=== PATIENT | female | born 1945 | race Caucasian/White ===

== ENCOUNTER 2019-03-14 09:17 | Observation (INO) | payer MEDICARE, MEDICAID ==
[~2019-03-14] VITALS: Ht 162.6 cm; Wt 68.2 kg
[2019-03-14] MEDS ORDERED: BAYER CHEWABLE81 MG PO (09:24)
--- NOTE | 2019-03-14 10:30 | NUR ---
MITZI, JULIANNE, AT BEDSIDE SPLINTING PT'S RIGHT ANKLE.
[2019-03-14 10:53] LABS: BASOPHILS 0.2 % (0-2); EOSINOPHILS 0.5 % (0-7); HEMATOCRIT 45.3 % (36.0-48.0); HEMOGLOBIN 14.9 g/dL (12-16); IMMATURE GRANULOCYTES 0.6 % (0-5); LYMPHOCYTES 20.8 % (15-50); MCHC 32.9 g/dL (31.0-37.0); MCV 91.1 fL (80.0-100.0); MEAN PLATELET VOLUME 9.9 fL (7.4-10.4); MONOCYTES 6.6 % (2-11); NEUTROPHILS 71.3 % (40-80); PLATELET COUNT 249 10x3/uL (130-400); RBC 4.97 10x6/uL (4.00-5.40); RDW 13.7 % (11.5-14.5); WBC 15.5 10x3/uL (4.8-10.8)
[2019-03-14 11:09] LABS: ALBUMIN 3.7 g/dL (3.4-5.0); ANION GAP 15.4 mmol/L (8-16); BILIRUBIN - TOTAL 0.23 mg/dL (0.2-1.3); CALCIUM 8.8 mg/dL (8.5-10.1); CARBON DIOXIDE 22.4 mmol/L (21.0-32.0); CREATININE - SERUM 0.9 mg/dL (0.6-1.3); POTASSIUM - SERUM 4.8 mmol/L (3.5-5.1); PROTEIN - SERUM 6.9 g/dL (6.4-8.2)
[2019-03-14 11:38] VITALS: BP 107/74; Ht 162.6 cm; Wt 68.2 kg
--- NOTE | 2019-03-14 11:48 | NUR ---
ALERT AND ORIENTED X 3. LUNGS CLEAR BILATERALLY IN ALL VAZQUEZ. HEART SOUNDS S1 AND S2 HEARD IN ALL VAZQUEZ. BOWEL SOUNDS ACTIVE X 4. SKIN INTACT WITHOUT REDNESS. DANIKA WRAP AND IMMOBILIZER IN PLACE TO RIGHT ANKLE. GIVEN PAIN MEDICATION IN ER BUT STATES STILL IN PAIN. MONOTYPE OPERATOR NOTIFIED. IV TO LFA PATENT WITHOUT REDNESS. FALL PRECAUTIONS IN PLACE. BED LOW. DENIES FURTHER NEEDS. WILL CONTINUE TO MONITOR.
[2019-03-14 12:07] VITALS: BP 107/76
--- NOTE | 2019-03-14 12:24 | NUR ---
SPOKE WITH DR GIRON ABOUT PATIENT PROCEDURE. STATED PROCEDURE IS TOMORROW MORNING AND PATIENT CAN EAT TODAY. STATED ORDERS WERE SUPPOSED TO BE PUT IN FOR THAT. STATES IS COMING BACK TO PUT IN ORDERS. PATIENT NOTIFIED OF PROCEDURE TOMORROW
[2019-03-14 14:16] LABS: APPEARANCE HAZY (CLEAR); BILIRUBIN NEGATIVE (NEGATIVE); COLOR YELLOW (YELLOW); GLUCOSE NEGATIVE (NEGATIVE); KETONE NEGATIVE (NEGATIVE); NITRITE NEGATIVE (NEGATIVE); PROTEIN NEGATIVE (NEGATIVE); UROBILINOGEN NORMAL (NORMAL)
--- NOTE | 2019-03-14 14:52 | NUR ---
CONSENTS SIGNED FOR PROCEDURE.
--- NOTE | 2019-03-14 16:44 | NUR ---
REPORT GIVEN TO DIOGO CONN. PATIENT HANDED OFF.
[2019-03-14 17:06] VITALS: BP 98/63
--- NOTE | 2019-03-14 19:00 | NUR ---
REPORT RECEIVED AND CARE OF PT ASSUMED. RIGHT LOWER LEG IN IMMOBILIZER AND ELEVATED ON A PILLOW. ASSISTED PT UP TO USE BSC WITHOUT ANY WEIGHT BEARING ON RLE. IV IN LEFT FA SALINE LOCKED. WILL MONITOR FOR NEEDS.
[2019-03-14 20:00] VITALS: BP 94/53
--- NOTE | 2019-03-14 20:31 | NUR ---
HS MEDICATIONS GIVEN. STARTED MAINTENANCE IV FLUIDS PER PROTOCOL...1/2 NS @ 50 ML/HR.
--- NOTE | 2019-03-14 23:24 | NUR ---
GAVE MORPHINE 2 MG IVP PER REQUEST FOR PAIN. WILL MONITOR FOR EFFECTIVENESS. SIDE RAILS UP X2 FOR SAFETY.
[2019-03-15] VITALS: BP 106/58
--- NOTE | 2019-03-15 03:45 | NUR ---
GAVE MORPHINE 2 MG IVP PER REQUEST FOR PAIN. WILL MONITOR FOR EFFECTIVENESS.
[2019-03-15 04:00] VITALS: BP 103/57
[2019-03-15 04:03] LABS: BASOPHILS 0.1 % (0-2); HEMATOCRIT 40.3 % (36.0-48.0); IMMATURE GRANULOCYTES 0.4 % (0-5); LYMPHOCYTES 23.3 % (15-50); MCH 29.5 pg (26.0-34.0); MCHC 32.3 g/dL (31.0-37.0); MCV 91.6 fL (80.0-100.0); MEAN PLATELET VOLUME 9.6 fL (7.4-10.4); MONOCYTES 8.1 % (2-11); NEUTROPHILS 67.1 % (40-80); PLATELET COUNT 226 10x3/uL (130-400); RDW 13.7 % (11.5-14.5); WBC 13.8 10x3/uL (4.8-10.8)
[2019-03-15 04:14] LABS: ALBUMIN 3.1 g/dL (3.4-5.0); ANION GAP 11.1 mmol/L (8-16); BILIRUBIN - TOTAL 0.26 mg/dL (0.2-1.3); CALCIUM 8.6 mg/dL (8.5-10.1); CARBON DIOXIDE 26.4 mmol/L (21.0-32.0); POTASSIUM - SERUM 4.5 mmol/L (3.5-5.1)
--- NOTE | 2019-03-15 05:15 | NUR ---
HIBACLENS BATH PERFORMED. POSITIONED FOR COMFORT.
--- NOTE | 2019-03-15 07:15 | NUR ---
PT SITTING UP ON BEDSIDE COMMODE. C/O PAIN TO RIGHT LEG/HIP. NO S/S OF ACUTE DISTRESS NOTED. NONWEIGHT BEARING ON RIGHT SIDE. RIGHT ANKLE FX WITH IMMOBILIZER AND DANIKA BANDAGE. PT NPO SINCE MIDNIGHT. IV TO LEFT WRIST, 1/2 NS INFUSING @ 50ML/HR. SITE PATENT WITHOUT REDNESS OR SWELLING. PT DENIES ANYTHING FURTHER AT THIS TIME. BED ALARM ON, FALL PRECAUTIONS IN PLACE. CALL LIGHT IN REACH. WILL CONTINUE TO MONITOR.
--- NOTE | 2019-03-15 07:53 | NUR ---
PT C/O PAIN TO RIGHT LEG/HIP. GAVE MORPHINE FOR PAIN RATED 8/10.
--- NOTE | 2019-03-15 08:20 | NUR ---
PT TAKEN TO SURGERY THIS AM VIA BED, ACCOMPANIED BY SURGICAL STAFF.
[2019-03-15 09:01] VITALS: BP 109/55
[2019-03-15 12:38] VITALS: BP 123/66
--- NOTE | 2019-03-15 12:49 | NUR ---
RECEIVED PT FROM OR VIA BED ACCOMPANIED BY RECOVERY STAFF. VITALS STABLE, PT ON 2L O2, NC. PT C/O NAUSEA, GIVEN ZOFRAN IN RECOVERY. PT DENIES ANYTHING FURTHER AT THIS TIME. CALL LIGHT IN REACH. WILL CONTINUE TO MONITOR.
--- NOTE | 2019-03-15 14:23 | MORECARE ---
CASE MANAGEMENT DISCHARGE SUMMARY PATIENT: DEXTER JOHNS UNIT: [id number] ADM DATE: 03/14/19 AGE: 74 : 44 SEX: F ROOM/BED: D.2224 AUTHOR: TERENCE THOMAS PHYSICIAN: REFERRING PHYSICIAN: SALLY RAMOS MD DATE OF SERVICE: 03/15/19 Discharge Plan Patient Name: DEXTER JOHNS Facility: [facility]:[place] : 1945 Planned Disposition: Home Anticipated Discharge Date: Discharge Date: Expected LOS: Initial Reviewer: [email or web address] Initial Review Date: 03/14/2019 Generated: 03/15/19 3:23 pm DCPIA - Discharge Planning Initial Assessment Updated by [email or web address]: Alysha Nunn on 03/15/19 2:19 pm * Is the patient Alert and Oriented? Yes * How many steps to enter\exit or inside your home? 0/0 * PCP Dr. Brewer * Pharmacy [facility] * Preadmission Environment Independent [facility] * Facility Name [facility] * ADLs Independent * Equipment None * Community resources currently utilized None * Additional services required to return to the preadmission environment? Yes * Can the patient safely return to the preadmission environment? Yes * Has this patient been hospitalized within the prior 30 days at any hospital? No Coverage Notice Reviewer: [id number] Emilio Hdez Notice Issued Date-Time: 03/14/2019 11:10 Notice Type: Medicare Outpatient Observation Notice Notice Delivered To: Patient Relationship to Patient: Philosophy And Religion Instructor Name: Delivery Method: - Gabby Days: Prior Verbal Notification: Recipient Understood Notice: Recipient Signature: Med Rec Note Co-signed by Attending: Coverage Notice Comment: Patient Name: DEXTER JOHNS Page [id number] at 1423 All edits/amendments must be made on the electronic document DICTATION DATE: 03/15/191422 STRICKLER ATTENDANT: MICHAEL 03/15/191422 RPT#: [id number] DC DATE: STATUS: [place] [address] END OF REPORT
--- NOTE | 2019-03-15 14:35 | MORECARE ---
CASE MANAGEMENT DISCHARGE SUMMARY PATIENT: DEXTER JOHNS UNIT: [id number] ADM DATE: 03/14/19 AGE: 74 : 44 SEX: F ROOM/BED: D.2224 AUTHOR: TERENCE THOMAS PHYSICIAN: REFERRING PHYSICIAN: SALLY RAMOS MD DATE OF SERVICE: 03/15/19 Discharge Plan Patient Name: DEXTER JOHNS Facility: [facility]:[place] : 1945 Planned Disposition: Home Anticipated Discharge Date: Discharge Date: Expected LOS: Initial Reviewer: [id number] Initial Review Date: 03/14/2019 Generated: 03/15/19 3:35 pm Comments DCP- Discharge Planning Updated by [id number]: Alysha Nunn on 03/15/19 1:[address] Patient Name: DEXTER JOHNS Admission Status: ER Accout number: [id number] Admission Date: 03-14-2019 : 1945 Admission Diagnosis: Attending: SALLY RAMOS Current LOS: 1 Anticipated DC Date: Planned Disposition: Home Primary Insurance: [facility] MEDICARE SOLUTIONS Discharge Planning Comments: CM met with patient to discuss discharge planning/needs, she is alone in the room. She states she lives at the [facility]. States she is completely independent with all her care. States she does not have any DME. I informed her that she would need a walker to walk with since she can not bear weight on her right ankle. She states she would like crutches instead of a walker. I spoke with Yazan with PT and he states Thong will see her and inform of recommendation. She states that she will need transportation home. She does have Medicaid and may be able to take the [employer] bus if available. CM will await recommendation by PT before ordering crutches or walker for home use. I discussed availability of home health, rehab, or any other DME and she declines need. CM will continue to follow and assist with discharge planning/needs. Construction Millwright: Alysha Nunn DCPIA - Discharge Planning Initial Assessment Updated by [email or web address]: Alysha Nunn on 03/15/19 2:19 pm * Is the patient Alert and Oriented? Yes * How many steps to enter\exit or inside your home? 0/0 * PCP Dr. Brewer * Pharmacy [facility] * Preadmission Environment Independent [facility] * Facility Name [facility] * ADLs Independent * Equipment None * Community resources currently utilized None * Additional services required to return to the preadmission environment? Yes * Can the patient safely return to the preadmission environment? Yes * Has this patient been hospitalized within the prior 30 days at any hospital? No Coverage Notice Reviewer: [id number] Emilio Hdez Notice Issued Date-Time: 03/14/2019 11:10 Notice Type: Medicare Outpatient Observation Notice Notice Delivered To: Patient Relationship to Patient: Director Of Philanthropy Name: Delivery Method: - Gabby Days: Prior Verbal Notification: Recipient Understood Notice: Recipient Signature: Med Rec Note Co-signed by Attending: Coverage Notice Comment: Last DP export: 03/15/19 1:23 p Patient Name: DEXTER JOHNS Page [id number] at 1435 All edits/amendments must be made on the electronic document DICTATION DATE: 03/15/191433 HOSPITAL WELLNESS COORDINATOR: MICHAEL 03/15/19 143 RPT#: [id number] DC DATE: STATUS: ADM IN [facility] [address] [place] [address] END OF REPORT
--- NOTE | 2019-03-15 15:39 | NUR ---
PLEXI PULSE AND LUO HOSE TO LEFT LEG,
--- NOTE | 2019-03-15 15:43 | MORECARE ---
CASE MANAGEMENT DISCHARGE SUMMARY PATIENT: DEXTER JOHNS UNIT: [id number] ADM DATE: 03/14/19 AGE: 74 : 44 SEX: F ROOM/BED: D.2224 AUTHOR: TERENCE THOMAS PHYSICIAN: REFERRING PHYSICIAN: SALLY RAMOS MD DATE OF SERVICE: 03/15/19 Discharge Plan Patient Name: DEXTER JOHNS Facility: [facility]:[place] : 1945 Planned Disposition: Home Anticipated Discharge Date: Discharge Date: Expected LOS: Initial Reviewer: [id number] Initial Review Date: 03/14/2019 Generated: 03/15/19 4:43 pm Comments DCP- Discharge Planning Updated by [id number]: Alysha Nunn on 03/15/19 1:[address] Patient Name: DEXTER JOHNS Admission Status: ER Accout number: [id number] Admission Date: 03-14-2019 : 1945 Admission Diagnosis: Attending: SALLY RAMOS Current LOS: 1 Anticipated DC Date: Planned Disposition: Home Primary Insurance: [facility] MEDICARE SOLUTIONS Discharge Planning Comments: CM met with patient to discuss discharge planning/needs, she is alone in the room. She states she lives at the [facility]. States she is completely independent with all her care. States she does not have any DME. I informed her that she would need a walker to walk with since she can not bear weight on her right ankle. She states she would like crutches instead of a walker. I spoke with Yazan with PT and he states Thong will see her and inform of recommendation. She states that she will need transportation home. She does have Medicaid and may be able to take the [email or web address] bus if available. CM will await recommendation by PT before ordering crutches or walker for home use. I discussed availability of home health, rehab, or any other DME and she declines need. CM will continue to follow and assist with discharge planning/needs. Dry Charge Process Attendant: Alysha Nunn DCPIA - Discharge Planning Initial Assessment Updated by [id number]: Alysha Nunn on 03/15/19 2:19 pm * Is the patient Alert and Oriented? Yes * How many steps to enter\exit or inside your home? 0/0 * PCP Dr. Brewer * Pharmacy [facility] * Preadmission Environment Independent [facility] * Facility Name [facility] * ADLs Independent * Equipment None * Community resources currently utilized None * Additional services required to return to the preadmission environment? Yes * Can the patient safely return to the preadmission environment? Yes * Has this patient been hospitalized within the prior 30 days at any hospital? No External Providers External Provider: Ramírez [facility] Next Contact Date: Service Request Date: Service Type: Resolution: Reviewer: Comments: Coverage Notice Reviewer: [id number] Emilio Hdze Notice Issued Date-Time: 03/14/2019 11:10 Notice Type: Medicare Outpatient Observation Notice Notice Delivered To: Patient Relationship to Patient: Cutter Hot Knife Name: Delivery Method: - Gabby Days: Prior Verbal Notification: Recipient Understood Notice: Recipient Signature: Med Rec Note Co-signed by Attending: Coverage Notice Comment: Last DP export: 03/15/19 1:35 p Patient Name: DEXTER JOHNS Page 24834 at 1543 All edits/amendments must be made on the electronic document DICTATION DATE: 03/15/19 154 FULLERETTE: MICHAEL 03/15/19 154 RPT#: [id number] DC DATE: STATUS: ADM IN [facility] [address] [place] [address] END OF REPORT
--- NOTE | 2019-03-15 15:52 | MORECARE ---
CASE MANAGEMENT DISCHARGE SUMMARY PATIENT: DEXTER JOHNS UNIT: [id number] ADM DATE: 03/14/19 AGE: 74 : 44 SEX: F ROOM/BED: D.2224 AUTHOR: TERENCE THOMAS PHYSICIAN: REFERRING PHYSICIAN: SALLY RAMOS MD DATE OF SERVICE: 03/15/19 Discharge Plan Patient Name: DEXTER JOHNS Facility: [facility]:[place] : 1945 Planned Disposition: Home Anticipated Discharge Date: Discharge Date: Expected LOS: Initial Reviewer: [id number] Initial Review Date: 03/14/2019 Generated: 03/15/19 4:51 pm Comments DCP- Discharge Planning Updated by [id number]: Alysha Tomlinsonmarkos on 03/15/19 2:[address] Jl states physical therapist has left for the day and will see patient in am. I called [facility] and spoke to Naheed. Naheed states to order both crutches and walker to be delivered today. The patient will take home whatever DME works best for her and sign that ticket and the other item will be picked up by [facility]ri[facility] on Monday. Patient still states she would rather the crutches than a walker. I called [employer] per patient request and left a message with Nena. I also provided the patient with the number for meals on wheels and the number for the [employer] bus per her request. CM will continue to follow and assist with discharge planning/needs. DCP- Discharge Planning Updated by [id number]: Alysha Nunn on 03/15/19 1:[address] Patient Name: DEXTER JOHNS Admission Status: ER Accout number: [id number] Admission Date: 03-14-2019 : 1945 Admission Diagnosis: Attending: SALLY RAMOS Current LOS: 1 Anticipated DC Date: Planned Disposition: Home Primary Insurance: [facility] MEDICARE SOLUTIONS Discharge Planning Comments: CM met with patient to discuss discharge planning/needs, she is alone in the room. She states she lives at the [facility]. States she is completely independent with all her care. States she does not have any DME. I informed her that she would need a walker to walk with since she can not bear weight on her right ankle. She states she would like crutches instead of a walker. I spoke with Yazan with PT and he states Thong will see her and inform of recommendation. She states that she will need transportation home. She does have Medicaid and may be able to take the [employer] bus if available. CM will await recommendation by PT before ordering crutches or walker for home use. I discussed availability of home health, rehab, or any other DME and she declines need. CM will continue to follow and assist with discharge planning/needs. Authors Motivational: Alysha Nunn DCPIA - Discharge Planning Initial Assessment Updated by [id number]: Alysha Nunn on 03/15/19 2:19 pm * Is the patient Alert and Oriented? Yes * How many steps to enter\exit or inside your home? 0/0 * PCP Dr. Brewer * Pharmacy [facility] [address] * Preadmission Environment Independent [facility] * Facility Name [facility] * ADLs Independent * Equipment None * Community resources currently utilized None * Additional services required to return to the preadmission environment? Yes * Can the patient safely return to the preadmission environment? Yes * Has this patient been hospitalized within the prior 30 days at any hospital? No Coverage Notice Reviewer: [id number] Emilio Hdez Notice Issued Date-Time: 03/14/2019 11:10 Notice Type: Medicare Outpatient Observation Notice Notice Delivered To: Patient Relationship to Patient: Director Vaccine Name: Delivery Method: - Gabby Days: Prior Verbal Notification: Recipient Understood Notice: Recipient Signature: Med Rec Note Co-signed by Attending: Coverage Notice Comment: Reviewer: [id number] - Alysha Nunn Notice Issued Date-Time: 03/15/2019 15:44 Notice Type: Patient Choice Letter Notice Delivered To: Patient Relationship to Patient: Self Director Vaccine Name: Delivery Method: HAND - Hand Delivered Gabby Days: Prior Verbal Notification: Recipient Understood Notice: Yes Recipient Signature: Yes Med Rec Note Co-signed by Attending: Coverage Notice Comment: DANIEL SCHULTZ export: 03/15/19 2:43 p Patient Name: DEXTER JOHNS Page [id number] at 1552 All edits/amendments must be made on the electronic document DICTATION DATE: 03/15/19 1551 RECORDS MANAGEMENT CLERK: DM 03/15/191550 RPT#: [id number] DC DATE: STATUS: ADM IN [facility] [address] [place] [address] END OF REPORT
--- NOTE | 2019-03-15 16:15 | MORECARE ---
CASE MANAGEMENT DISCHARGE SUMMARY PATIENT: DEXTER JOHNS UNIT: [id number] ADM DATE: 03/14/19 AGE: 74 : 44 SEX: F ROOM/BED: D.2224 AUTHOR: TERENCE THOMAS PHYSICIAN: REFERRING PHYSICIAN: SALLY RAMOS MD DATE OF SERVICE: 03/15/19 Discharge Plan Patient Name: DEXTER JOHNS Facility: [facility]:[place] : 1945 Planned Disposition: Home Anticipated Discharge Date: Discharge Date: Expected LOS: Initial Reviewer: [email or web address] Initial Review Date: 03/14/2019 Generated: 03/15/19 5:15 pm Comments DCP- Discharge Planning Updated by [id number]: Alysha Edouard on 03/15/19 3:[address] Received a call back from Nena with [employer]. She has taken the patient's information and will have a case preparer and liner call her. Patient is asleep, so I left a message at her bedside table. CM will continue to follow and assist with discharge planning/needs. DCP- Discharge Planning Updated by [email or web address]: Alysha Nunn on 03/15/19 2:[address] Jl states physical therapist has left for the day and will see patient in am. I called [facility] and spoke to Naheed. Naheed states to order both crutches and walker to be delivered today. The patient will take home whatever DME works best for her and sign that ticket and the other item will be picked up by Jocelyne on Monday. Patient still states she would rather the crutches than a walker. I called [employer] per patient request and left a message with Nena. I also provided the patient with the number for meals on wheels and the number for the [employer] bus per her request. CM will continue to follow and assist with discharge planning/needs. DCP- Discharge Planning Updated by [id number]: Alysha Edouard on 03/15/19 1:[address] Patient Name: DEXTER JOHNS Admission Status: ER Accout number: [id number] Admission Date: 03-14-2019 : 1945 Admission Diagnosis: Attending: SALLY RAMOS Current LOS: 1 Anticipated DC Date: Planned Disposition: Home Primary Insurance: [facility] MEDICARE SOLUTIONS Discharge Planning Comments: CM met with patient to discuss discharge planning/needs, she is alone in the room. She states she lives at the [facility]. States she is completely independent with all her care. States she does not have any DME. I informed her that she would need a walker to walk with since she can not bear weight on her right ankle. She states she would like crutches instead of a walker. I spoke with Yazan with PT and he states Thong will see her and inform of recommendation. She states that she will need transportation home. She does have Medicaid and may be able to take the [employer] bus if available. CM will await recommendation by PT before ordering crutches or walker for home use. I discussed availability of home health, rehab, or any other DME and she declines need. CM will continue to follow and assist with discharge planning/needs. Inspector Tubes: Alysha Nunn DCPIA - Discharge Planning Initial Assessment Updated by [email or web address]: Alysha Nunn on 03/15/19 2:19 pm * Is the patient Alert and Oriented? Yes * How many steps to enter\exit or inside your home? 0/0 * PCP Dr. Brewer * Pharmacy [facility] * [facility]readmission Environment [facility] * Facility Name [facility] * ADLs Independent * Equipment None * Community resources currently utilized None * Additional services required to return to the preadmission environment? Yes * Can the patient safely return to the preadmission environment? Yes * Has this patient been hospitalized within the prior 30 days at any hospital? No Coverage Notice Reviewer: [id number] - Louise Hdez Notice Issued Date-Time: 03/14/2019 11:10 Notice Type: Medicare Outpatient Observation Notice Notice Delivered To: Patient Relationship to Patient: Field Clinical Engineer Name: Delivery Method: - Gabby Days: Prior Verbal Notification: Recipient Understood Notice: Recipient Signature: Med Rec Note Co-signed by Attending: Coverage Notice Comment: Reviewer: [id number] - Alysha Nunn Notice Issued Date-Time: 03/15/2019 15:44 Notice Type: Patient Choice Letter Notice Delivered To: Patient Relationship to Patient: Self Field Clinical Engineer Name: Delivery Method: HAND - Hand Delivered Gabby Days: Prior Verbal Notification: Recipient Understood Notice: Yes Recipient Signature: Yes Med Rec Note Co-signed by Attending: Coverage Notice Comment: DANIEL for Jocelyne Barak DP export: 03/15/19 2:51 p Patient Name: DEXTER JOHNS Page 23502 at 1615 All edits/amendments must be made on the electronic document DICTATION DATE: 03/15/191613 WIRE TESTER: MICHAEL 03/15/191613 RPT#: [id number] DC DATE: STATUS: ADM IN [facility] [address] [place] [address] END OF REPORT
[2019-03-15 17:23] VITALS: BP 104/67
--- NOTE | 2019-03-15 18:04 | NUR ---
I have reviewed this patient and I concur with the Shift Assessment completed by the Licensed Practical Nurse today this shift.
--- NOTE | 2019-03-15 18:27 | NUR ---
PT RESTING IN BED, EYES OPEN. NO C/O PAIN. NO S/S OF ACUTE DISTRESS NOTED. PT DENIES ANYTHING FURTHER. WILL CONTINUE TO MONTIOR.
--- NOTE | 2019-03-15 19:00 | NUR ---
REPORT RECEIVED AND CARE OF PT ASSUMED. PT LYING IN SUPINE POSITION WITH EYES CLOSED. IV IN LEFT WRIST PATENT WITH 1/2 NS INFUSING AT 50 ML / HR. DRESSING ON RIGHT LOWER LEG INTACT.
--- NOTE | 2019-03-15 19:48 | NUR ---
HS MEDICATIONS GIVEN TO INCLUDE MORPHINE FOR PAIN. GAVE PROTONIX THAT WAS HELD EARLIER TODAY FOR C/O HEARTBURN.
[2019-03-15 20:00] VITALS: BP 98/55
--- NOTE | 2019-03-15 21:15 | NUR ---
PT VOMITED 150 ML OF CLEAR LIQUID AND UNDIGESTED FOOD. STATES HE STOMACH FEELING MUCH BETTER. RESTING ON RIGHT SIDE AT THIS TIME.
--- NOTE | 2019-03-16 00:30 | NUR ---
TURNED OFF MAINTENANCE FLUIDS PT UPSET ABOUT PUMP ALARMING AND SHE CANNOT SLEEP.
[2019-03-16 04:00] VITALS: BP 107/50
[2019-03-16 07:07] LABS: BASOPHILS 0.1 % (0-2); EOSINOPHILS 0.3 % (0-7); HEMATOCRIT 39.5 % (36.0-48.0); HEMOGLOBIN 12.9 g/dL (12-16); IMMATURE GRANULOCYTES 0.4 % (0-5); LYMPHOCYTES 18.4 % (15-50); MCH 29.4 pg (26.0-34.0); MCHC 32.7 g/dL (31.0-37.0); MEAN PLATELET VOLUME 9.7 fL (7.4-10.4); MONOCYTES 8.6 % (2-11); NEUTROPHILS 72.2 % (40-80); PLATELET COUNT 227 10x3/uL (130-400); RBC 4.39 10x6/uL (4.00-5.40); RDW 13.4 % (11.5-14.5)
--- NOTE | 2019-03-16 07:15 | NUR ---
PT SITTING UP IN BED EYES OPEN. UPSET ABOUT NOT BEING ABLE TO SLEEP WELL LAST NIGHT D/T IV MACHINE GOING OFF ALL NIGHT AND STAFF HAVING TO COME IN AND OUT OF HER ROOM. NO C/O PAIN. NO S/S OF ACUTE DISTRESS NOTED. POD #1 ORIF RIGHT ANKLE. DRESSING C/D/I. IV TO LEFT WRIST, SL. PATIENT WANTED IV MACHINE OFF. PT DENIES ANYTHING FURTHER AT THIS TIME. CALL LIGHT IN REACH. WILL CONTINUE TO MONITOR.
[2019-03-16 07:22] LABS: WBC 18.1 10x3/uL (4.8-10.8)
[2019-03-16 07:39] LABS: ALBUMIN 3.1 g/dL (3.4-5.0); ANION GAP 12.2 mmol/L (8-16); BILIRUBIN - TOTAL 0.52 mg/dL (0.2-1.3); CALCIUM 8.6 mg/dL (8.5-10.1); CREATININE - SERUM 0.8 mg/dL (0.6-1.3); POTASSIUM - SERUM 4.2 mmol/L (3.5-5.1); PROTEIN - SERUM 6.2 g/dL (6.4-8.2)
[2019-03-16 08:42] VITALS: BP 107/61
--- NOTE | 2019-03-16 11:01 | NUR ---
I have reviewed this patient and I concur with the Shift Assessment completed by the Licensed Practical Nurse today this shift.
--- NOTE | 2019-03-16 13:11 | MORECARE ---
CASE MANAGEMENT DISCHARGE SUMMARY PATIENT: DEXTER JOHNS UNIT: [id number] ADM DATE: 03/14/19 AGE: 74 : 44 SEX: F ROOM/BED: D.2224 AUTHOR: TERENCE THOMAS PHYSICIAN: REFERRING PHYSICIAN: SALLY RAMOS MD DATE OF SERVICE: 03/16/19 Discharge Plan Patient Name: DEXTER JOHNS Facility: [facility]:[place] : 1945 Planned Disposition: Home Anticipated Discharge Date: 03/16/19 Discharge Date: Expected LOS: 2 Initial Reviewer: [id number] Initial Review Date: 03/14/2019 Generated: 03/16/19 2:10 pm Comments DCP- Discharge Planning Updated by [id number]: Alysha Nunn on 03/15/19 3:[address] Received a call back from Nena with [employer]. She has taken the patient's information and will have a case filler call her. Patient is asleep, so I left a message at her bedside table. CM will continue to follow and assist with discharge planning/needs. DCP- Discharge Planning Updated by [email or web address]: Alysha Nunn on 03/15/19 2:[address] Jl states physical therapist has left for the day and will see patient in am. I called [facility]oc[facility] and spoke to Naheed. Naheed states to order both crutches and walker to be delivered today. The patient will take home whatever DME works best for her and sign that ticket and the other item will be picked up by Jocelyne on Monday. Patient still states she would rather the crutches than a walker. I called [facility] per patient request and left a message with Nena. I also provided the patient with the number for meals on wheels and the number for the [facility] bus per her request. CM will continue to follow and assist with discharge planning/needs. DCP- Discharge Planning Updated by [email or web address]: Alysha Nunn on 03/15/19 1:[address] Patient Name: DEXTER JOHNS Admission Status: ER Accout number: [id number] Admission Date: 03-14-2019 : 1945 Admission Diagnosis: Attending: SALLY RAMOS Current LOS: 1 Anticipated DC Date: Planned Disposition: Home Primary Insurance: [facility] MEDICARE SOLUTIONS Discharge Planning Comments: CM met with patient to discuss discharge planning/needs, she is alone in the room. She states she lives at the [facility]. States she is completely independent with all her care. States she does not have any DME. I informed her that she would need a walker to walk with since she can not bear weight on her right ankle. She states she would like crutches instead of a walker. I spoke with Yazan with PT and he states Thong will see her and inform of recommendation. She states that she will need transportation home. She does have Medicaid and may be able to take the [employer] bus if available. CM will await recommendation by PT before ordering crutches or walker for home use. I discussed availability of home health, rehab, or any other DME and she declines need. CM will continue to follow and assist with discharge planning/needs. Electric Golf Cart Repairer: Alysha Nunn DCPIA - Discharge Planning Initial Assessment Updated by [email or web address]: Alysha Nunn on 03/15/19 2:19 pm * Is the patient Alert and Oriented? Yes * How many steps to enter\exit or inside your home? 0/0 * PCP Dr. Brewer * Pharmacy [facility] on [address] * Preadmission Environment [facility] * Facility Name [facility] * ADLs Independent * Equipment None * Community resources currently utilized None * Additional services required to return to the preadmission environment? Yes * Can the patient safely return to the preadmission environment? Yes * Has this patient been hospitalized within the prior 30 days at any hospital? No Coverage Notice Reviewer: [id number] - Louise Hdez Notice Issued Date-Time: 03/14/2019 11:10 Notice Type: Medicare Outpatient Observation Notice Notice Delivered To: Patient Relationship to Patient: Pulmonary Physician Name: Delivery Method: - Gabby Days: Prior Verbal Notification: Recipient Understood Notice: Recipient Signature: Med Rec Note Co-signed by Attending: Coverage Notice Comment: Reviewer: [id number] - Alysha Nunn Notice Issued Date-Time: 03/15/2019 15:44 Notice Type: Patient Choice Letter Notice Delivered To: Patient Relationship to Patient: Self Pulmonary Physician Name: Delivery Method: HAND - Hand Delivered Gabby Days: Prior Verbal Notification: Recipient Understood Notice: Yes Recipient Signature: Yes Med Rec Note Co-signed by Attending: Coverage Notice Comment: DANIEL for Jocelyne Barak DP export: 03/15/19 3:15 p Patient Name: DEXTER JOHNS Page [id number] at 1311 All edits/amendments must be made on the electronic document DICTATION DATE: 03/16/19 1310 MANGLE TENDER: MICHAEL 03/16/19 1310 RPT#: [id number] DC DATE: STATUS: ADM IN [facility] [address] [place] [address] END OF REPORT
--- NOTE | 2019-03-16 13:23 | MORECARE ---
CASE MANAGEMENT DISCHARGE SUMMARY PATIENT: DEXTER JOHNS UNIT: [id number] ADM DATE: 03/14/19 AGE: 74 : 44 SEX: F ROOM/BED: D.2224 AUTHOR: MARTHA,DOC PHYSICIAN: REFERRING PHYSICIAN: SALLY RAMOS MD DATE OF SERVICE: 03/16/19 Discharge Plan Patient Name: DEXTER JOHNS Facility: [facility]:[place] : 1945 Planned Disposition: Home Anticipated Discharge Date: 03/16/19 Discharge Date: Expected LOS: 2 Initial Reviewer: [id number] Initial Review Date: 03/14/2019 Generated: 03/16/19 2:23 pm Comments DCP- Discharge Planning Updated by [id number]: Cecy Hoskins on 03/16/19 12:[address] LATE ENTRY PATIENT FOR DISCHARGE TO HOME TODAY. PHYSICAL THERAPIST VISITED WITH CM AND STATED THE PATIENT WOULD BE SAFER AT DISCHARGE WITH A WALKER RATHER THAN CRUTCHES. HE HAD DISCUSSED WITH THE PATIENT. [facility].. THEY WILL PICK THE CRUTCHES AND DELIVER THE WALKER. THE [facility] DOES NOT TRANSPORT ON THE WEEKEND. CM WILL APPROVE A TAXI TRANSPORT TO HER HOME AT THE [facility]. SHE INITIALLY DECLINED HOME HEALTH. DISCUSSED AND REVIEWED MD ORDERS. SHE WILL CALL HER NEIGHBOR WHO HAS H/H TO DETERMINE HER PROVIDER AND ADVISE THECM. AWAIT PATIENT'S DECISION. DCP- Discharge Planning Updated by [email or web address]: Alysha Nunn on 03/15/19 3:[address] Received a call back from Nena with [employer]. She has taken the patient's information and will have a case manager call her. Patient is asleep, so I left a message at her bedside table. CM will continue to follow and assist with discharge planning/needs. DCP- Discharge Planning Updated by [id number]: Alysha Edouard on 03/15/19 2:[address] Jl states physical therapist has left for the day and will see patient in am. I called Myri[facility] and spoke to Naheed. Naheed states to order both crutches and walker to be delivered today. The patient will take home whatever DME works best for her and sign that ticket and the other item will be picked up by Myriam on Monday. Patient still states she would rather the crutches than a walker. I called [facility] [employer] per patient request and left a message with Nena. I also provided the patient with the number for meals on wheels and the number for the [facility] bus per her request. CM will continue to follow and assist with discharge planning/needs. DCP- Discharge Planning Updated by [id number]: Alysha Nunn on 03/15/19 1:[address] Patient Name: DEXTER JOHNS Admission Status: ER Accout number: [id number] Admission Date: 03-14-2019 : 1945 Admission Diagnosis: Attending: SALLY RAMOS Current LOS: 1 Anticipated DC Date: Planned Disposition: Home Primary Insurance: [facility] MEDICARE SOLUTIONS Discharge Planning Comments: CM met with patient to discuss discharge planning/needs, she is alone in the room. She states she lives at the [facility]. States she is completely independent with all her care. States she does not have any DME. I informed her that she would need a walker to walk with since she can not bear weight on her right ankle. She states she would like crutches instead of a walker. I spoke with Yazan with PT and he states Thong will see her and inform of recommendation. She states that she will need transportation home. She does have Medicaid and may be able to take the [facility] bus if available. CM will await recommendation by PT before ordering crutches or walker for home use. I discussed availability of home health, rehab, or any other DME and she declines need. CM will continue to follow and assist with discharge planning/needs. Shale Planer Operator Helper: Alysha Tomlinsonmarkos DCPIA - Discharge Planning Initial Assessment Updated by [email or web address]: Alysha Tomlinsonmarkos on 03/15/19 2:19 pm * Is the patient Alert and Oriented? Yes * How many steps to enter\exit or inside your home? 0/0 * PCP Dr. Brewer * Pharmacy [facility] on [address] * Preadmission Environment Independent [facility] Apartment * Facility Name [facility] * ADLs Independent * Equipment None * Community resources currently utilized None * Additional services required to return to the preadmission environment? Yes * Can the patient safely return to the preadmission environment? Yes * Has this patient been hospitalized within the prior 30 days at any hospital? No Coverage Notice Reviewer: [id number] Emilio Hdez Notice Issued Date-Time: 03/14/2019 11:10 Notice Type: Medicare Outpatient Observation Notice Notice Delivered To: Patient Relationship to Patient: Sas Clinical Programmer Name: Delivery Method: - Gabby Days: Prior Verbal Notification: Recipient Understood Notice: Recipient Signature: Med Rec Note Co-signed by Attending: Coverage Notice Comment: Reviewer: [id number] - Alysha Nunn Notice Issued Date-Time: 03/15/2019 15:44 Notice Type: Patient Choice Letter Notice Delivered To: Patient Relationship to Patient: Self Sas Clinical Programmer Name: Delivery Method: HAND - Hand Delivered Gabby Days: Prior Verbal Notification: Recipient Understood Notice: Yes Recipient Signature: Yes Med Rec Note Co-signed by Attending: Coverage Notice Comment: DANIEL Cancino DP export: 03/16/19 12:11 pm Patient Name: DEXTER JOHNS Page [id number] at 1323 All edits/amendments must be made on the electronic document DICTATION DATE: 03/16/19 1323 GREASE CUP FILLER: MICHAEL 03/16/19 1323 RPT#: [id number] DC DATE: STATUS: ADM IN [facility] [address] [place] [address] END OF REPORT
--- NOTE | 2019-03-16 14:29 | MORECARE ---
CASE MANAGEMENT DISCHARGE SUMMARY PATIENT: DEXTER JOHNS UNIT: [id number] ADM DATE: 03/14/19 AGE: 74 : 44 SEX: F ROOM/BED: D.2224 AUTHOR: MARTHA,DOC PHYSICIAN: REFERRING PHYSICIAN: SALLY RAMOS MD DATE OF SERVICE: 03/16/19 Discharge Plan Patient Name: DEXTER JOHNS Facility: [facility]:[place] : 1945 Planned Disposition: Home Anticipated Discharge Date: 03/16/19 Discharge Date: Expected LOS: 2 Initial Reviewer: [id number] Initial Review Date: 03/14/2019 Generated: 03/16/19 3:28 pm Comments DCP- Discharge Planning Updated by [email or web address]: Cecy Hoskins on 03/16/19 1:[address] PATIENT CHOICE FORM SIGNED FOR [facility]. SIGNED COPY TO THE PATIENT AND SIGNED COPY TO THE HARD COVER CHART. DCP- Discharge Planning Updated by [email or web address]: Cecy Hoskins on 03/16/19 1:[address] 1345 PATIENT HAS SELECTED [facility] FOR HOME HEALTH SERVICES. [facility] AWAITING CALL BACK REGARDING ACCEPTANCE OF REFERRAL. DCP- Discharge Planning Updated by [id number]: Cecy Hoskins on 03/16/19 12:[address] LATE ENTRY PATIENT FOR DISCHARGE TO HOME TODAY. PHYSICAL THERAPIST VISITED WITH CM AND STATED THE PATIENT WOULD BE SAFER AT DISCHARGE WITH A WALKER RATHER THAN CRUTCHES. HE HAD DISCUSSED WITH THE PATIENT. TC TO [facility] AND SPOKE WITH THE ONCALL.. THEY WILL PICK THE CRUTCHES AND DELIVER THE WALKER. THE [facility] DOES NOT TRANSPORT ON THE WEEKEND. CM WILL APPROVE A TAXI TRANSPORT TO HER HOME AT THE [facility]. SHE INITIALLY DECLINED HOME HEALTH. DISCUSSED AND REVIEWED MD ORDERS. SHE WILL CALL HER NEIGHBOR WHO HAS H/H TO DETERMINE HER PROVIDER AND ADVISE THECM. AWAIT PATIENT'S DECISION. DCP- Discharge Planning Updated by [id number]: Alysha Edouard on 03/15/19 3:[address] Received a call back from Nena with [employer]. She has taken the patient's information and will have a case specialist call her. Patient is asleep, so I left a message at her bedside table. CM will continue to follow and assist with discharge planning/needs. DCP- Discharge Planning Updated by [email or web address]: Alysha Nunn on 03/15/19 2:[address] Jl states physical therapist has left for the day and will see patient in am. I called Myriam and spoke to Naheed. Naheed states to order both crutches and walker to be delivered today. The patient will take home whatever DME works best for her and sign that ticket and the other item will be picked up by Myriam on Monday. Patient still states she would rather the crutches than a walker. I called [facility] [employer] [facility] per patient request and left a message with Nena. I also provided the patient with the number for meals on wheels and the number for the [facility] bus per her request. CM will continue to follow and assist with discharge planning/needs. DCP- Discharge Planning Updated by [id number]: Alysha Nunn on 03/15/19 1:[address] Patient Name: DEXTER JOHNS Admission Status: ER Accout number: [id number] Admission Date: 03-14-2019 : 1945 Admission Diagnosis: Attending: SALLY RAMOS Current LOS: 1 Anticipated DC Date: Planned Disposition: Home Primary Insurance: [facility] MEDICARE SOLUTIONS Discharge Planning Comments: CM met with patient to discuss discharge planning/needs, she is alone in the room. She states she lives at the [facility]. States she is completely independent with all her care. States she does not have any DME. I informed her that she would need a walker to walk with since she can not bear weight on her right ankle. She states she would like crutches instead of a walker. I spoke with Yazan with PT and he states Thong will see her and inform of recommendation. She states that she will need transportation home. She does have Medicaid and may be able to take the [facility] bus if available. CM will await recommendation by PT before ordering crutches or walker for home use. I discussed availability of home health, rehab, or any other DME and she declines need. CM will continue to follow and assist with discharge planning/needs. Five Roll Refiner Batch Mixer: Alysha Nunn DCPIA - Discharge Planning Initial Assessment Updated by [id number]: Alysha Nunn on 03/15/19 2:19 pm * Is the patient Alert and Oriented? Yes * How many steps to enter\exit or inside your home? 0/0 * PCP Dr. Brewer * Pharmacy [facility] on [address] * Preadmission Environment Independent [facility] Apartment * Facility Name [facility] * ADLs Independent * Equipment None * Community resources currently utilized None * Additional services required to return to the preadmission environment? Yes * Can the patient safely return to the preadmission environment? Yes * Has this patient been hospitalized within the prior 30 days at any hospital? No Coverage Notice Reviewer: [id number] Emilio Hdez Notice Issued Date-Time: 03/14/2019 11:10 Notice Type: Medicare Outpatient Observation Notice Notice Delivered To: Patient Relationship to Patient: Loin Puller Name: Delivery Method: - Gabby Days: Prior Verbal Notification: Recipient Understood Notice: Recipient Signature: Med Rec Note Co-signed by Attending: Coverage Notice Comment: Reviewer: [id number] - Alysha Nunn Notice Issued Date-Time: 03/15/2019 15:44 Notice Type: Patient Choice Letter Notice Delivered To: Patient Relationship to Patient: Self Loin Puller Name: Delivery Method: HAND - Hand Delivered Gabby Days: Prior Verbal Notification: Recipient Understood Notice: Yes Recipient Signature: Yes Med Rec Note Co-signed by Attending: Coverage Notice Comment: DANIEL for Myriam Cancino DP export: 03/16/19 12:23 pm Patient Name: DEXTER JOHNS Page [phone] at 1429 All edits/amendments must be made on the electronic document DICTATION DATE: 03/16/191427 SPICE FUMIGATOR: MICHAEL 03/16/19 1428 RPT#: [id number] DC DATE: STATUS: ADM IN [facility] [address] [place] [address] END OF REPORT
[2019-03-16 14:31] VITALS: BP 99/63
[2019-03-16] MEDS ORDERED: COLACE100 MG PO (14:33)
[2019-03-16] MEDS ORDERED: Nicoderm [PBKC] TRANSDERM (14:33)
[2019-03-16] MEDS ORDERED: HYDROCODON-ACE1 EAC2 PO (14:36)
--- NOTE | 2019-03-16 15:49 | NUR ---
PT DISCHARGED HOME WITH HOME HEALTH VIA WHEELCHAIR TAKEN HOME BY TAXI. DISCONTINUED IV, CATHETER TIP INTACT. WENT OVER DISCHARGE INSTRUCTIONS WITH PATIENT, PATIENT VERBALIZED UNDERSTANDING. TAXI CAB RIDE HOME COVERED BY HOSPITAL. PT DENIES ANYTHING FURTHER.
--- NOTE | 2019-03-16 17:36 | MORECARE ---
CASE MANAGEMENT DISCHARGE SUMMARY PATIENT: DEXTER JOHNS UNIT: [id number] ADM DATE: 03/14/19 AGE: 74 : 44 SEX: F ROOM/BED: D.2224 AUTHOR: MARTHA,DOC PHYSICIAN: REFERRING PHYSICIAN: SALLY RAMOS MD DATE OF SERVICE: 03/16/19 Discharge Plan Patient Name: DEXTER JOHNS Facility: [facility]:[place] : 1945 Planned Disposition: Home Anticipated Discharge Date: 03/16/19 Discharge Date: 03/16/2019 Expected LOS: 2 Initial Reviewer: [email or web address] Initial Review Date: 03/14/2019 Generated: 03/16/19 6:36 pm Comments DCP- Discharge Planning Updated by [email or web address]: Cecy Hoskins on 03/16/19 4:[address] TELEPHONED BELL, JOINT TERMINAL ATTACK CONTROLLER NURSE, FROM [facility]. DISCUSSED REFERRAL. SHE WILL CALL HER DIRECTOR OF EVENT MARKETING. FAXED REFERRAL DIRECTED. PATIENT WILL BE SEEN ON MONDAY. DCP- Discharge Planning Updated by [email or web address]: Cecy Hoskins on 03/16/19 1:[address] PATIENT CHOICE FORM SIGNED FOR [facility]. SIGNED COPY TO THE PATIENT AND SIGNED COPY TO THE HARD COVER CHART. DCP- Discharge Planning Updated by [id number]: Cecy Hoskins on 03/16/19 1:[address] 1345 PATIENT HAS SELECTED [facility] FOR HOME HEALTH SERVICES. TC TO THE [facility]. AWAITING CALL BACK REGARDING ACCEPTANCE OF REFERRAL. DCP- Discharge Planning Updated by [id number]: Cecy Hoskins on 03/16/19 12:[address] LATE ENTRY PATIENT FOR DISCHARGE TO HOME TODAY. PHYSICAL THERAPIST VISITED WITH CM AND STATED THE PATIENT WOULD BE SAFER AT DISCHARGE WITH A WALKER RATHER THAN CRUTCHES. HE HAD DISCUSSED WITH THE PATIENT. TC TO [facility] AND SPOKE WITH THE ONCALL.. THEY WILL PICK THE CRUTCHES AND DELIVER THE WALKER. THE [facility]AT DOES NOT TRANSPORT ON THE WEEKEND. CM WILL APPROVE A TAXI TRANSPORT TO HER HOME AT THE [facility]. SHE INITIALLY DECLINED HOME HEALTH. DISCUSSED AND REVIEWED MD ORDERS. SHE WILL CALL HER NEIGHBOR WHO HAS H/H TO DETERMINE HER PROVIDER AND ADVISE THECM. AWAIT PATIENT'S DECISION. DCP- Discharge Planning Updated by [id number]: Alysha Nunn on 03/15/19 3:[address] Received a call back from Nena with [employer]. She has taken the patient's information and will have a dependency case manager call her. Patient is asleep, so I left a message at her bedside table. CM will continue to follow and assist with discharge planning/needs. DCP- Discharge Planning Updated by [email or web address]: Alysha Nunn on 03/15/19 2:[address] Jl states physical therapist has left for the day and will see patient in am. I called [facility] and spoke to Naheed. Naheed states to order both crutches and walker to be delivered today. The patient will take home whatever DME works best for her and sign that ticket and the other item will be picked up by Myriam on Monday. Patient still states she would rather the crutches than a walker. I called [facility] [employer] [facility] per patient request and left a message with Nena. I also provided the patient with the number for meals on wheels and the number for the [facility] bus per her request. CM will continue to follow and assist with discharge planning/needs. DCP- Discharge Planning Updated by [id number]: Alysha Nunn on 03/15/19 1:[address] Patient Name: DEXTER JOHNS Admission Status: ER Accout number: [id number] Admission Date: 03-14-2019 : 1945 Admission Diagnosis: Attending: SALLY RAMOS Current LOS: 1 Anticipated DC Date: Planned Disposition: Home Primary Insurance: [facility] MEDICARE SOLUTIONS Discharge Planning Comments: CM met with patient to discuss discharge planning/needs, she is alone in the room. She states she lives at the [facility]. States she is completely independent with all her care. States she does not have any DME. I informed her that she would need a walker to walk with since she can not bear weight on her right ankle. She states she would like crutches instead of a walker. I spoke with Yazan with PT and he states Thong will see her and inform of recommendation. She states that she will need transportation home. She does have Medicaid and may be able to take the [facility] bus if available. CM will await recommendation by PT before ordering crutches or walker for home use. I discussed availability of home health, rehab, or any other DME and she declines need. CM will continue to follow and assist with discharge planning/needs. Nonfarm Animal Caretaker: Alysha Nunn DCPIA - Discharge Planning Initial Assessment Updated by [email or web address]: Alysha Nunn on 03/15/19 2:19 pm * Is the patient Alert and Oriented? Yes * How many steps to enter\exit or inside your home? 0/0 * PCP Dr. Brewer * Pharmacy [facility] on [address] * Preadmission Environment Independent [facility] * Facility Name [facility] * ADLs Independent * Equipment None * Community resources currently utilized None * Additional services required to return to the preadmission environment? Yes * Can the patient safely return to the preadmission environment? Yes * Has this patient been hospitalized within the prior 30 days at any hospital? No Coverage Notice Reviewer: [id number] Emilio Hdez Notice Issued Date-Time: 03/14/2019 11:10 Notice Type: Medicare Outpatient Observation Notice Notice Delivered To: Patient Relationship to Patient: Grip Assembler Name: Delivery Method: - Gabby Days: Prior Verbal Notification: Recipient Understood Notice: Recipient Signature: Med Rec Note Co-signed by Attending: Coverage Notice Comment: Reviewer: [id number] - Alysha Nunn Notice Issued Date-Time: 03/15/2019 15:44 Notice Type: Patient Choice Letter Notice Delivered To: Patient Relationship to Patient: Self Grip Assembler Name: Delivery Method: HAND - Hand Delivered Gabby Days: Prior Verbal Notification: Recipient Understood Notice: Yes Recipient Signature: Yes Med Rec Note Co-signed by Attending: Coverage Notice Comment: DANIEL for Myriam Cancino DP export: 03/16/19 1:28 pm Patient Name: DEXTER JOHNS Page [id number] at 1732 All edits/amendments must be made on the electronic document DICTATION DATE: 03/16/191735 LOGISTICS ENGINEERING MANAGER: MICHAEL 03/16/191735 RPT#: [id number] DC DATE:03/16/19 STATUS: DIS IN [place] [id number] [place] [address] END OF REPORT
== END 2019-03-16 15:52 | disposition home health service (06) ==
LOC: D.ER 09:17 → D.MS 10:43 → OBSVTIME 10:44 → D.MS 03-16 15:52
PROVIDERS: Emergency Medicine; Family Medicine; ADMIT Emergency Medicine; ATTEND Emergency Medicine
DX: S82.891A Other fracture of right lower leg, initial encounter for closed fracture (principal); W19.XXXA Unspecified fall, initial encounter; F17.213 Nicotine dependence, cigarettes, with withdrawal; E86.0 Dehydration; D72.829 Elevated white blood cell count, unspecified